=== PATIENT | male | born 1965 | race Caucasian/White ===

== ENCOUNTER 2018-12-29 09:42 | Inpatient (IN) | payer OTHER ==
[~2018-12-29] VITALS: Ht 180.3 cm; Wt 110.6 kg
[2018-12-29 09:45] VITALS: BP 148/73
[2018-12-29 10:04] LABS: ABSOLUTE NEUTROPHILS 5.1 thou/uL (1.4-8.2); BASOPHILS 1.2 % (0.0-2.0); HEMATOCRIT 47.8 % (42.0-52.0); HEMOGLOBIN 15.8 gm/dL (14.0-18.0); LYMPHOCYTES 27.6 % (24.0-44.0); MCV 87.9 fL (80.0-100.0); MONOCYTES 7.3 % (1.0-8.0); PLATELET COUNT 199 thou/uL (150-400); POLYS 59.9 % (36.0-66.0); RBC 5.44 mil/uL (4.50-6.00); RDW 13.9 % (10.5-14.5); WBC 8.5 thou/uL (4.0-11.0)
[2018-12-29 10:14] LABS: CREATININE 0.8 mg/dL (0.7-1.3); POTASSIUM 3.8 mmol/L (3.5-5.1)
[2018-12-29 10:16] LABS: URINE BILIRUBIN NEGATIVE (Negative); URINE BLOOD NEGATIVE (Negative); URINE CLARITY CLEAR; URINE COLOR YELLOW; URINE GLUCOSE-RANDOM* NEGATIVE (Negative); URINE KETONES NEGATIVE (Negative); URINE LEUKOCYTES NEGATIVE (Negative); URINE NITRITE NEGATIVE (Negative); URINE PROTEIN (DIPSTICK) NEGATIVE (Negative); URINE SPECIFIC GRAVITY 1.025 (1.005-1.035); URINE UROBILINOGEN 0.2 E.U./dl (0.2-1.0)
[2018-12-29 10:20] LABS: ALBUMIN 3.9 g/dL (3.4-5.0); DIRECT BILIRUBIN 0.1 mg/dL (<0.1-0.3); TOTAL BILIRUBIN 0.4 mg/dL (<0.1-1.0); TOTAL PROTEIN 6.8 g/dL (6.4-8.2)
[2018-12-29 10:28] LABS: AMP/METHAMP Negative (Negative); BARBITURATES Negative (Negative); BENZODIAZEPINES POSITIVE (Negative); COCAINE POSITIVE (Negative); METHADONE Negative (Negative); OPIATES POSITIVE (Negative); PCP POSITIVE (Negative)
[2018-12-29] MEDS ORDERED: LITHIUM CARBON300 M6 PO (10:50)
[2018-12-29] MEDS ORDERED: XARELTO20 MG PO (10:50)
--- NOTE | 2018-12-29 11:42 | NUR ---
I was asked to assess Maciel to see if he met criteria for psych evaluation. Varghese is paranoid, and speaking loudly almost yelling. He is angry and admitted to being agiatated. Maciel reports being in pain. He denies any suicidal ideations. "I don't want to hurt anybody. I am not going to hurt you." he stated. Pt currently lives at [facility]; he is upset due to the place is unclean. He is asking for xanax, and suboxone. Dr. Bland will admit Maciel to the geripsych unit.
[2018-12-29 12:14] VITALS: BP 111/54
[2018-12-29 12:54] VITALS: BP 104/44
[2018-12-29 14:03] VITALS: BP 105/55
--- NOTE | 2018-12-29 14:05 | NUR ---
ARRIVES TO UNIT VIA CART FROM ER-IS NOTED TO SOMULENT UPON ARRIVAL TO UNIT-INITALLY ABLE TO ANSWEER SOME QUESTIONS BUT RESPONSES ARE SLURRED,SLOW TO RESPOND-DENIES SI/SH/HI-STATES HES HERE FOR "BACK PAIN" AFTER APPROX. 10 MINUTES UPON ARRIVAL TO FLOOR IS TO SEDATED TO ANSWER ADDITIONAL QUESTIONS-DEEP SNORING RESPRATIONS NOTED. VS 105/55-P 65-12 98.0 02 SAT 95 PERCENT. CLOTHING NOTED TO BE SOILED,SMELLS STRONGLY OF BODY ODOR AND URINE- IS NOTED TO HAVE MULTIPLE TATOOS ON LOWERE EXTREMETIES,ARMS AND TORSO-FACE AND ARMS SLIGHLTLY REDDENED. NO OPEN SORES,RASHES OR BRUISING NOTED. PER ER REPORT PT HAS BEEN LEAVING [facility] GOING [address] TO QUICK TRIP AND USING DRUGS-WAS REPORTED TO HAVE TESTED POSITIVE FOR WIQ-QZZ-AGMDQAU,BENZODIAZIPNES AND THC IN ER. PER ER REPORT WAS GIVEN HALDOL AND ATIVAN IN ER FOR AGITATION AND COMBATIVE BEHAVIOR
[2018-12-29 16:22] LABS: FOLIC ACID 11.4 ng/mL (8.6-58.9); TSH 2.101 uIU/mL (0.358-3.740)
[2018-12-29 20:15] VITALS: BP 112/57
--- NOTE | 2018-12-30 05:16 | NUR ---
1909-Report received from day shift nurse and care assumed. Maciel's VS were wnl. He was sleeping and moving side to side at shift start. He was awakened to talk with and he said he "hadn't slept in a couple days" He signed the admission forms, said "the doctors have been lowering his medications". He said he was here for medication adjustment. He ambulated to the bathroom and notably was limping to one side, he said it was his "back, has lumbar injury/pain". His medications at HS due were discussed with him, [place], Methodone and Haldol. He said "no Haldol, it affects my heart". He took the [place] and Methadone only, not the Haldol. He was asked which medicines he wants to take and he said "Klonopin and Oxycontin". He had slept thru dinner meal per report and he said he was real hungry, food given to him. He awakened in the night and walked to the nurses desk and said "I brought cigarettes here" and was explained he has a patch ordered for tomorrow. He returned to sleeping, he urinated in the toilet two or three times in the nite and slept soundly.
[2018-12-30 06:11] LABS: GLYCOHEMOGLOBIN (HGB A1C) 6.6 % (4.8-5.6)
--- NOTE | 2018-12-30 10:56 | NUR ---
Assess due to diet order review. Admit to [facility] with kaylee, polysubstance abuse. BMI obese 34.9, eating 100%. Hx diabetes and BG 117-185 with need for ss insulin. Add carb control to diet order. Low nutrition risk
--- NOTE | 2018-12-30 11:42 | NUR ---
Care assumed of patient at 0700: Patient resting in bed at start of shift. Patient alert and oriented x4. Initially he was pleasant, calm, and cooperative. Patient up for breakfast with good appetite. Patient then isolated to his room. Patient was asked to attend AM groups and became biligerant with nursing staff. Cursing and yelling. Patient did come out to day room but has been resting in chair in the back of the room, isolating self from others. Patient reported that he would not be taking his scheduled Haldol because he is not psychotic and doesn't want to of heart failure. Patient also refused AM insulin. Dr. Carbone notified. Order was obtained to d/c accucheck and insulin due to refusal. Order obtained to start Metformin. Patient reported that he only wants his Klonipin and Oxycotin back. Patient denies SI/HI/AH/VH. No physical aggression observed.
[2018-12-30] MEDS ORDERED: SYNTHROID100 MC1 PO (13:47)
[2018-12-30] MEDS ORDERED: METFORMIN HCL500 MG PO (13:48)
[2018-12-30] MEDS ORDERED: SINGULAIR 10 MG10 M1 PO (13:48)
[2018-12-30] MEDS ORDERED: FLONASE 0.05%50 MCG NASAL (13:49)
[2018-12-30] MEDS ORDERED: ROXICODONE5 M2 PO (13:54)
[2018-12-30] MEDS ORDERED: CLONAZEPAM 1 MG1 M1 PO (13:54)
--- NOTE | 2018-12-30 16:19 | H ---
[facility] [address] [place] [address] HISTORY AND PHYSICAL Name: LIUDMILA SINCLAIR Room #: 524B-B ADM IN M.R.#: [id number] Admission: 12/29/18 Attend Phys: Javi Bland DO Discharge: Date of : 67 Report #: [id number] THIS REPORT FOR: //name// CC: Javi Bland NO PCP DATE OF SERVICE: 12/29/2018 PSYCHIATRIC EVALUATION ATTENDING PHYSICIAN: Javi Bland DO. STACK SUPERVISOR: Hospitalist, Dr. West. Of note, very little information could be obtained due to the patient being manic, psychotic. He is a resident at [facility]. Unfortunately, records were not sent with him to the ER and could not be obtained later in the day. Also, of note, I previously cared for this patient at a previous job at [facility] [facility] in 2018. HISTORY OF PRESENT ILLNESS: The patient says at [facility] recent medication changes. The patient is hypertalkative. Apparently, the patient has resided at nursing facility, unknown period of time. He is unhappy with the care there. He reports lower back pain, which radiates to his left lower quadrant. He was scheduled for surgery 6 months ago, but surgery was not completed. The patient reports drug use. He had numerous positives on his drug screen including cocaine, PCP, marijuana, opiates. He also reports previously being on 2 mg of Ativan, which was reduced. Also he takes lithium. His pharmacy history was obtained from what is available only on medication reconciliation feature of [facility] [employer]. The patient is noted to be on Xarelto 20 mg with dinner, unknown indication; lithium carbonate 300 mg p.o. daily, which we increased to 300 mg twice per day on admission. ALLERGIES: KETOROLAC, OLANZAPINE. KETOROLAC CAUSES ITCHING. SOCIAL HISTORY: He uses drugs. REVIEW OF SYSTEMS: Unable to get comprehensive review of systems. He denied being suicidal in the ER. The patient was telling about if he would be given the medications, he was given in [place], which included Xanax, Suboxone,. The patient's weight is 252 pounds. Looks like they could not get a heart and lung exam on him even in the ER. LABORATORY DATA: Sodium 139, potassium 3.8, chloride 103, bicarbonate 27, BUN 17, creatinine 0.8, estimated GFR 102, glucose 178, calcium 9.0, total bilirubin [facility] [address] [place] [address] HISTORY AND PHYSICAL Name: LIUDMILA SINCLAIR Room #: [facility]- ADM IN .R.#: [id number] Admission: 12/29/18 Attend Phys: Javi Bland, Discharge: Date of : 67 Report #: [id number] 0.4, direct bilirubin 0.1, AST 32, ALT 45, alkaline phosphatase 61, total protein 6.8, albumin 3.9. White count 8.5, H and H 15.8 and 47.8, platelet count 199. Positives on the drug screen were opiates, phencyclidine, benzodiazepines, cocaine and marijuana. UDS was negative. Regarding his medications once on the unit, he is on senna 1 tab p.o. daily, 14 mg nicotine patch, pantoprazole 20 mg p.o. daily, levothyroxine 100 mcg p.o. daily that is from his outside medications. [place] carbonate 300 mg twice per day, his blood level in the ER on toxicology came up negative, less than 0.1, so he has been noncompliant with medication. Other medications, haloperidol 2 mg p.o. b.i.d. was ordered. He is on sliding scale insulin. I have ordered methadone 10 mg 3 times per day, which should make the patient happy. PHYSICAL EXAMINATION: VITAL SIGNS: From this evening, temperature 36.4, pulse 63, respirations 17, BP 112/57, O2 sat 94%. MUSCULOSKELETAL: He uses a cane to walk. Later from the Haldol 5, Ativan 1 he got in the ER, he came sleeping on stretcher. MENTAL STATUS EXAMINATION: This is a well-developed, disheveled, obese male, appearing older than stated age. Attention is impaired. Concentration is impaired. Speech loud before he got the chemical restraints. Mood is congruent, irritable, angry, threatening, and dysphoric. Marked psychomotor agitation. No psychomotor retardation. Made statements of suicidal nature, but these appear to be out of frustration. Denied homicidal intent or plan. Memory unable to be assessed. Insight is impaired. Judgment is impaired. Fund of knowledge is below average. FORMULATION: A 53-year-old male, appearing frankly manic with psychotic features. The patient had to be chemically restrained in the Emergency Room. ASSESSMENT: Bipolar 1 disorder, most recent episode manic, cannot exclude drug-induced cause; substance use disorder including cocaine; chronic pain; hypothyroidism; concern for diabetes mellitus. PLAN: Evaluate, stabilize, obtain collateral. Start lithium 300 mg twice per day, Haldol 2 mg twice per day, start methadone 10 mg p.o. t.i.d. for pain. I have asked the hospitalist to allow me to manage his pain. The patient currently is voluntary. I think the toxins he got in his body from his street drug use have gotten the best of him. He will need to be coherent and able to be managed in a nonhospital setting before he will be allowed to leave voluntarily. Necessary 96-hour hold should be instituted. [facility] [address] [place] [address] HISTORY AND PHYSICAL Name: LIUDMILA SINCLAIR Room #: 524B-B ADM IN M.R.#: [id number] Admission: 12/29/18 Attend Phys: Javi Bland DO Discharge: Date of : 67 Report #: [id number] Time spent on interview, review of records, coordination of care of this patient is at least 45 minutes. strengths: young age weaknesses: illicict drug use,already in halfway, poorcoping skills, poor support <ELECTRONICALLY SIGNED> By: Javi Bland DO 12/30/18 1619 [id number] [id number] Javi Bland DO /nt
--- NOTE | 2018-12-30 16:23 | NUR ---
SW met with pt briefly and was very interested in getting the " right medications" and is worried he may not be able to return to his placement at [facility].
--- NOTE | 2018-12-30 16:56 | EKG ---
[address] [address] ELECTROCARDIOGRAM REPORT Name: TADEOELIEZERILANALIUDMILA Room #: 524B-B ADM IN M.R.#: [id number] Admission: 12/29/18 Attend Phys: Javi lBand DO Discharge: Date of : 67 Report #: [id number] THIS REPORT FOR: //name// [facility] Test Date: 2018-12-30 Test Time: 16:29:05 Pat Name: LIUDMILA SINCLAIR Department: Room: [facility] Gender: M Engineering Recruiter: Yenni VACA : 1965 Requested By: Sharita Lobato Order Number: [id number] MD: Víctor Miller Measurements Intervals [place] Rate: 61 P: 49 [place]: 221 QRS: -60 QRSD: 148 T: 43 QT: 434 QTc: 438 Interpretive Statements Sinus rhythm Prolonged [place] interval RBBB and LAFB No previous ECG available for comparison Electronically Signed On 12-30-2018 16:56:22 CDT by Víctor Miller [email or web address] <ELECTRONICALLY SIGNED> By: Víctor Miller MD 12/30/18 1656 28 Víctor Miller MD /EPI
--- NOTE | 2018-12-30 23:20 | NUR ---
PT ASLEEP ON COUCH IN DAY ROOM UPON ARRIVAL TO SHIFT. PT EASILY AWAKENED, BLUNTED AFFECT GOOD EYE CONTACT, MINIMAL VERBALIZATIONS. PT REQUESTED HS SNACK AND COMPLIANT WITH MEDS. PT ASKED FOR PAIN MED PRIOR TO SLEEP AND PT WAS REMINDED HE HAD JUST TAKEN HIS METHADONE PRIOR TO HIS ICE CREAM. STEADY GAIT.
[2018-12-31 08:58] VITALS: BP 102/44
--- NOTE | 2018-12-31 16:00 | NUR ---
PT ALERT AND ORIENTED TIMES FOUR. VSS, PT DENIES SI/HI. PT STATES HIS ANXIETY IS HIGH. PT REFUSED TO TAKE HADOL THIS MORNING. DR NOTIFED NNO GIVEN AT THIS TIME. PT TOLERATES MEDS AND MEALS. PT UP AMBULATING AROUND THE UNIT WITH STEADY GAIT. SCHEDULED PAIN MEDICATIONS CONTROLLING PAIN WELL.
--- NOTE | 2018-12-31 16:44 | NUR ---
TAMANNA met with pt to complete the intake assesment. This pt was willing to try any NH that would take medicaid in [place] and let him smoke. TAMANNA sent referral to [facility] ( denied because they are full ) and [facility]. This is pending placement.
[2018-12-31 21:08] VITALS: BP 133/76
--- NOTE | 2018-12-31 23:12 | NUR ---
PT AWAKE AND WATCHING TV IN DAY ROOM UPON ARRIVAL TO SHIFT. PT REQUESTED HIS PAIN MEDS DURING VS AND ASSESSMENT. PT REQUESTED SNACK AND PROVIDED. PT HAS STEADY GAIT, GOOD EYE CONTACT, APPROPRIATE AFFECT. PT STATED THE INTERACTIONS OF HIS PEER GROUP WAS THAT SIMILAR TO YOUNG CHILDREN AND WENT TO REST IN BED.
--- NOTE | 2019-01-01 06:34 | NUR ---
PT REPORTED FEELING GOOD AND SLEEPING WELL SINCE HAVING ATIVAN LAST NIGHT. PT STATED HE NEEDS TO BE BACK ON HIS BENZOS. PT ORDERED DOUBLE PORTION BREAKFAST THIS AM. NOTED VARIABLE IN HIS CONVERSATION AND SMILING AFFECT, TALKING WITH ALL STAFF MEMBERS.
[2019-01-01 08:15] VITALS: BP 147/66
--- NOTE | 2019-01-01 16:03 | NUR ---
SW sent more referrals to [facility], [facility] . Pt was denied at [facility]
--- NOTE | 2019-01-01 18:45 | NUR ---
Up ambulating in unit without s/o distress. States he is anxious and has low back pain of 7-8. Requesting Ativan 1mg tid for anxiety and for pain med to be increased. Methadone given for pain. Will discuss ativan at care team meeting. Alert and orientated X4. Denies SI/HI. Breath sounds clear t/o. Color pink with brisk capillary refill. Regular HR auscultated. Active bowel sounds over soft, rounded abdomen. 1200 Atarax given per order for anxiety. Sleeping in chair without s/o distress. 1400 Watching TV and participating in group. Sleepy. No s/o distress. 1800 Currently sleeping in chair in dining room in front of TV. Ate dinner. No s/o distress.
[2019-01-01 19:35] VITALS: BP 118/64
[2019-01-01 23:15] VITALS: BP 118/64
--- NOTE | 2019-01-02 03:34 | NUR ---
PT OUT IN DAY ROOM ASLEEP IN CHAIR IN FRONT OF TV AT G OF SHIFT. ALLOWED STAFF TO ASSESS AND DO VITALS. QUIET AND COOPERATIVE. AFTER SNACKS, PT TOOK HS MEDS W/O PROBLEM. RECEIVED METHADONE FOR C/O PAIN AT LEVEL 7. SLEPT WELL THROUGH THE NIGHT TO THIS POINT.
[2019-01-02 07:05] VITALS: BP 120/69
[2019-01-02 11:11] VITALS: BP 120/69
--- NOTE | 2019-01-02 12:37 | NUR ---
0706 Received report from overnight shift, patient was a little irritable this morning. Patient at breakfast to a ensure and milk from another patient's tray. Patient was told he could not do that, patient is diabetic and take metformin. Patient's nicotine patch was changed today at 09:00, patient at lunch mad a big deal about the portion of food he was getting. Stated he wanted double portions. Dr Bland changed his diet to a regular one, no double portions. Patient will continued to be observed for medication seeking.
[2019-01-02 19:56] VITALS: BP 101/60
--- NOTE | 2019-01-02 23:21 | NUR ---
ASSUMED CARE OF THE PT AT 191 PM. THE PT WAS SITTING IN THE DAYROOM WHEN THIS WAFER FABRICATOR FIRST CAME ON DUTY. ALERT ET ORIENTED X 3. MAKES NEEDS KNOWN. WHEN THIS WAFER FABRICATOR FIRST CAME ON DUTY, THE PT REQUESTED HIS METHADONE, THIS WAFER FABRICATOR TOLD THE PT, HE COULDN'T GET IT UNTIL AFTER 8 PM. DENIES ANXIETY, DEPRESSION, SI/H/A/V HALLUNICATIONS. RACING THOUGHTS OR NIGHTMARES. WALKS WITH A STEADY GAIT. HE DID TAKE HIS HS MEDICATIONS WITHOUT ANY DIFFICULTY. REMAINS ON 12 MINUTE CHECKS FOR HIS SAFETY.
--- NOTE | 2019-01-03 03:48 | NUR ---
THE PT APPEARS TO BE SLEEPING IN BED EARLIER IN THE SHIFT. AT THIS TIME THE PT GOT UP AND WALKED INTO THE DAYROOM, WANTING A SNACK, WHICH WAS HELD THIS AM, THE PT IS A DIABETIC.
--- NOTE | 2019-01-03 05:38 | NUR ---
THE PT SLEPT 5.0 HOURS LAST NIGHT.
[2019-01-03 07:50] VITALS: BP 115/75
--- NOTE | 2019-01-03 19:26 | NUR ---
Alert and orientated X4. States he wants his methadone at 0800. Up ambulating without diff. No s/o distress. Denies SI/HI. States lower back pain is a 7/10. Repeatedly asks for Ativan, offered atarax. Reminded him that Ativan was previously discussed with Dr. Bland and he wasn't ordering that medication for him. Unhappy, but remained polite and cooperative. Breath sounds clear t/o, bilaterally equal. Color pink with brisk capillary refill and palpable peripheral pulses. Regular HR auscultated. Active bowel sounds over soft, rounded abdomen. 1400 Requesting Ativan and Methadone again. Methadone given and reminded him of prior discussions r/t ativan. Becoming more insistent. No s/o distress. 1529 Went to reassess pain and relief from Methadone. Appeared to be sleeping but then startled awake. Again requesting Ativan and wanting to discuss with Dr. Bland. States Methadone helps for several hours but really wants Ativan. Refuses atarax. 1814 Continues to request ativan and to call Dr. Bland. No s/o distress. Attentively watching TV when not asking for meds. Dr. Bland notified. Ordered Seroquel. Pt. states it gave him a BS over 500 in the past. Continues to refuse Atarax. Dr. Bland notified again. Ordered 25 mg Thorazine PO Q 6 hrs prn. Pt. refuses and became angry and used some profanity but remained in control and went back to watching TV. Continues to have no s/o distress.
[2019-01-03 19:51] VITALS: BP 113/72
--- NOTE | 2019-01-03 22:20 | NUR ---
ASSUMED CARE OF THE PT AT 191 PM. ALERT ET ORIENTED X 3. MAKES NEEDS KNOWN. WALKS WITH A STEADY GAIT. TOOK HIS PAIN MEDICATION AND HIS OTHER HS MEDICATIONS WITHOUT ANY DIFFICULTY. DENIES ANXIETY AND DEPRESSION. DENIES SI/HI/A/V HALLUNICATIONS. THE PT WAS SITTING IN THE DAYROOM WHEN THIS DRIVER WHEELCHAIR FIRST CAME ON DUTY. THE PT SPOKE WITH THE PHYSICIAN REGARDING HIS MEDICATIONS, NO NEW ORDERS. REMAINS ON 12 MINUTE CHECKS FOR HIS SAFETY.
--- NOTE | 2019-01-04 01:49 | NUR ---
THE PT APPEARS TO BE RESTING QUIETLY IN BED. REMAINS ON 12 MINUTE CHECKS FOR HIS SAFETY.
--- NOTE | 2019-01-04 05:03 | NUR ---
the pt slept 6.4 hours last night.
[2019-01-04 09:27] VITALS: BP 115/60
--- NOTE | 2019-01-04 16:23 | NUR ---
TAMANNA sent referrals to [facility], was delcined by Marcio Ward. SW followed with pt, and he is being understanding and patient and willing to wait for placement.
[2019-01-04 19:15] VITALS: BP 136/74
--- NOTE | 2019-01-04 19:48 | NUR ---
Up ambulating in unit t/o day. Alert and orientated X4. Cooperative. States lower back pain not too bad but states it is a 6. Requesting methadone right at time due. Conversing with peers and making observations about environment. Breath sounds clear t/o, bilaterally equal. Color pink with brisk capillary refill and palpable peripheral pulses. Reg HR auscultated. Active bowel sounds over soft, rounded abdomen. No requests for anxiety meds today.
--- NOTE | 2019-01-04 19:49 | NUR ---
ASSUMED CARE @ 19:20 ON 01/04/19. AMBULATING AND SITTING IN THE DAY ROOM AND HALLWAYS. COOPERATED WITH ASSESSMENT. C/O NOT ENOUGH FOOD, DENIES SI AND HI. HRRR, LUNGS CTA, ABD NORMOACTIVE BOWEL SOUNDS.
--- NOTE | 2019-01-04 22:04 | NUR ---
Took medications whole with water. Nasal spray, fluconazole provided. ambulating with bag of potato chips at 2200. Will continue to monitor q 12 for patient safety.
[2019-01-04 22:57] VITALS: BP 136/74
[2019-01-05 06:24] VITALS: BP 136/74
[2019-01-05 09:01] VITALS: BP 106/64
--- NOTE | 2019-01-05 10:34 | NUR ---
PATIENT WAS UP AND OUT ON THE UNIT WHEN CARE ASSUMED. PATIENT TOOK ALL MEDICATION WHOLE WITHOUT DIFFICULTY. PATIENT IS EATING MEALS AND DRIKING FLUID WELL. PATIENT IS ON DOUBLE PORTION DIET, ATE 100% OF BREAKFAST. PATIENT PARTICIPATED IN MORNING GROUP THERAPY. PATIENT DENIES SUICIDAL AND HOMICIDAL IDEATION, HE DENIES AUDITORY/VISUAL HALLUCINATION. PATIENT RATED BOTH DERESSION AND ANXIETY 8/10. PATIENT BECAME IRRITABLE WHEN THE RT WOULD NOT LET HIM MONOPOLIZE THE TV REMOTE, HE STARTED CURSING AT STAFF. "SHOVE IT UP YOUR ASS, YOU M.F", HE WAS REDIRECTED BY STAFF. PATIENT'S GOAL TODAY IS "TO GET OUT OF HERE". NO CONCERN VOICED. PATIENT CURRENTLY IN BED RESTING, NO SIGN OF ACUTE DISTRESS NOTED AT THIS TIME, WILL MONITOR FOR SAFETY.
--- NOTE | 2019-01-05 12:41 | NUR ---
Date of Admission: 12/29/18 Date of Activity Therapy Assessment: 01/01/19 Activity Goal: Increase awareness of sober leisure activities Initial Goal: 2 Group activities/day Weekly progress towards goal: On track Group participation level: Minimal Behaviors observed: Patient presents to groups of his choosing. Participation is fairly minimal, as patient either appears drowsy or bored by content d/t lack of similarities in the milieu. Patient is often seen exhibiting restless behaviors such as drumming on the table, making animal noises, or touching objects repeaditively. Plan: No change towards goal
--- NOTE | 2019-01-05 13:53 | NUR ---
1000 - SW followed up with [facility] admissions who said they are still considering him for admissions, but need approval from corporate office. SW contacted Yobany Estrada with [facility] and asked if he would be able to transport pt to a homeless detention; pt had an incident with a nurse is now being asked to leave. Yobany Estrada said he could pick pt up on Fri at 12pm if he is not admitted to a SNF. TAMANNA provided an update to the psych doc on duty who said he agrees with the plan of pt either going to SNF or going with Yobany Estrada. 1300 SW contacted the GP and they have yet to hear from corporate office. They said they would contact SW team when a decision is made. SW provided an update to pt who is also agreeable with plan. SW team will continue to follow pt during his stay.
--- NOTE | 2019-01-05 16:59 | NUR ---
1500- TAMANNA received information that pt can be accepted as a resident at [facility]; however, they need a copy of his SSI letter. TAMANNA asked pt if he has his award letter on him and he said he does not. SW contacted his former residence ([facility]) and asked if they had his belongings and if they have his award letter. The ambulatory nurse repsonded pt's things are at the front office specialist, and then SW was transferred to the facility . This SW left a vm for her. SW team then researced the website to see if the award letter can be requested online. In order to do so, pt needs access to his email. He does not have his phone with him. SW and pt contacted the office to inquire if they can fax the document. The result is they will mail him a letter to the address they have on file within 7-10 business days. 1644 - TAMANNA contacted [facility] to see if there was another document they will accept as pt does not appear to have access to his award at this time. TAMANNA did not receive an answer. TAMANNA also contacted Anthony Mcgill in [place]; there was no answer. TAMANNA team will continue to follow pt during his stay.
[2019-01-05 21:20] VITALS: BP 114/66
[2019-01-05 21:53] VITALS: BP 114/66
--- NOTE | 2019-01-05 22:38 | NUR ---
PATIENT WAS UP IN DINING ROOM UNTIL 10PM AND THEN HEADED OFF TO BED. HE HAS BEEN COOPERATIVE AND PLEASANT TONIGHT. HE DID ASK AROUND 8PM FOR HIS HS MEDS D/T C/O BACK PAIN. PATIENT IS ON METHADONE. HE HAS ALSO BEEN WALKING THE HALLS AT TIMES WITHOUT DISTRESS. PATIENT WAS SOCIAL WITH OTHER PEERS IN VISITING [facility]. HE DID HAVE AN HS SNACK. HE IS TO [facility]. WILL CONTINUE TO MONITOR.
--- NOTE | 2019-01-06 01:21 | NUR ---
PATIENT GIVEN OXYCONTIN 5MG PO AND LIDOCAINE 5% PATCH PLACED ON PATIENT AT 0055. PATIENT WALKED THE WATSON BACK TO HIS ROOM AND HAS BEEN SHOWING SIGNS OF OCD BY REPETIVEVLY FILLING HIS WATER CUP AND SWISHING IT AROUND IN THE CUP AND POURING IT OUT IF CLEANING THE SINK. AFTER WATCHING HIM DO THIS SEVERAL TIMES AND ABOUT 3 MINUTES HE WOULD STILL NOT STOP THE ACTION OR PUT THE CUP DOWN. THIS NURSE REMOVED THE CUP AND HE PICKED UP A WASH CLOTH AND BEGAN WETTING IT AND WASHING OUT THE SINK. I REMOVED EVERYTHING ELSE FROM THE SINK AREA. PATIENT CONTINUES TO CLEAN SINK AFTER 10 MINUTES. HOPING THE PATIENT WILL WEAR HIMSELF OUT. CONTINUOUS CHECKING TO MAKE SURE HE GETS BACK TO BED OK. PATIENT'S PAIN SEEMS TO HAVE DECREASED D/T LOOKS VERY RELAXED AND NOT COMPLAINING OF THE PAIN.
--- NOTE | 2019-01-06 01:31 | NUR ---
PATIENT AWOKE AND GOT UP TO WALK AROUND THE HALLWAYS. HE STATES HE JUST WOKE UP. HE STAYED UP FOR ABOUT 15 MINUTES AND THEN SAID HE WAS GOING TO GO BACK AND TRY AN SLEEP. PATIENT IN BED NOW.
[2019-01-06 08:00] VITALS: BP 128/71
--- NOTE | 2019-01-06 08:00 | NUR ---
Assumed care of patient this am from nightclub manager. Patient breath sounds clear, bowel sounds present, bright affect, calm, content, and cooperative with medications. Patient ambulates without assistance.
[2019-01-06 08:55] VITALS: BP 128/71
[2019-01-06 12:01] VITALS: BP 128/71
[2019-01-06] MEDS ORDERED: XARELTO20 MG PO (12:23)
[2019-01-06] MEDS ORDERED: METHADONE HCL 110 MG PO (12:24)
[2019-01-06] MEDS ORDERED: EFFEXOR XR37.5 MG PO (12:25)
[2019-01-06] MEDS ORDERED: LITHIUM CARBON600 MG PO (12:25)
[2019-01-06] MEDS ORDERED: SENNA-TIME S T1 EACH PO (12:26)
[2019-01-06] MEDS ORDERED: SINGULAIR 10 MG10 M1 PO (12:26)
[2019-01-06] MEDS ORDERED: PROTONIX 20 MG20 MG PO (12:27)
[2019-01-06] MEDS ORDERED: METFORMIN HCL500 MG PO (12:27)
[2019-01-06] MEDS ORDERED: SYNTHROID100 MC1 PO (12:27)
--- NOTE | 2019-01-06 17:15 | NUR ---
TAMANNA contacted [facility] to see if they would be able to accept pt. Admissions said corporate office has denied this referral. A local company hazmat driver for [employer] arrived to transport Maciel to a detention. TAMANNA observed pt gather his things and leave with the local company hazmat driver. During lunch, TAMANNA observed pt still in the hospital. He came to SW and said he decided not to go with local company hazmat driver and thanked SW. No other needs for SW team to address at this time.
--- NOTE | 2019-01-07 22:26 | D ---
[facility] [place] [address] DISCHARGE SUMMARY Name: LIUDMILA SINCLAIR Room #: 524B-B DIS IN M.R.#: [id number] Admission: 12/29/18 Attend Phys: Javi Bland DO Discharge: 01/06/19 Date of : 67 Report #: [id number] THIS REPORT FOR: //name// CC: Javi Bland NO PCP DATE OF SERVICE: 01/06/2019 ATTENDING PHYSICIAN: Javi Bland DO MANAGER RECRUITING AT THE TIME OF DISCHARGE: Иван Riojas MD DISCHARGE DIAGNOSES: Bipolar 1 disorder, most recent episode manic with psychotic features, much improved. Current diagnosis is substance use disorder for stimulants including cocaine, benzodiazepines, likely physiologic dependence on narcotics; however, he does have reasons for chronic pain, requiring opiate management. The patient's medical comorbidities; diabetes mellitus, refusing insulin, just wishes to be on metformin; hypothyroidism, on levothyroxine. Also, he is on Xarelto for DVT, asthma, COPD and nicotine dependence. He was given nicotine patch. DISCHARGE MEDICATIONS: Of note, the patient was strictly given a 15-day supply of methadone 10 mg at 9:00 a.m., 3:00 p.m. and 9:00 p.m., #45 total. The pharmacist called me to verify this at [facility]. Venlafaxine 37.5 mg p.o. as directed #30 for anxiety, lithium carbonate 600 mg p.o. b.i.d. for mood stabilization #60. The patient is recommended to continue to take senna/docusate sodium 1 tablet p.o. daily, Protonix 20 mg p.o. daily at 0700 for GERD. He can continue Flonase nasal spray as needed twice daily during season, also should continue Xarelto 20 mg p.o. daily with dinner. Levothyroxine 100 mcg p.o. daily for hypothyroidism, montelukast 10 mg p.o. at bedtime for COPD, metformin 500 mg p.o. b.i.d. with meals, clonazepam stopped this medicine as well as oxycodone as he is now getting methadone which he should ____ eliminate his illicit drug habit, particularly when he is stressed and his needs are not met. LABORATORY DATA: This admission, of note, his toxicology screening on admission was positive for opiates, phencyclidine, benzodiazepines, cocaine and marijuana. Initial lithium level was less than 0.1. Repeat lithium level on 300 b.i.d. was 0.3, so he was bumped up to 600 b.i.d., should put him in therapeutic range. Serum alcohol was negative on admission. Urinalysis was negative with the exception of some glucosuria I believe. Hematology was within normal limits. Electrolytes; hemoglobin A1c of 6.6, vitamin D level 56.7, folate 11.4, TSH 2.101, albumin was 3.9, no transaminitis. REASON FOR ADMISSION: Back on 12/29/2018, was sent to the ED from [facility]. The patient was manic, hyperverbal, complaining of abdominal and back [address] [address] DISCHARGE SUMMARY Name: LIUDMILA SINCLAIR Room #: 52-B DIS IN M.R.#: [id number] Admission: 12/29/18 Attend Phys: Javi Bland DO Discharge: 01/06/19 Date of : 67 Report #: [id number] pain. He was referred for psychiatric admission. HOSPITAL COURSE: The patient was admitted to [facility]iatric Psych Unit. The patient remained clear within about 48 hours. The patient stated that his living situation was unacceptable for him _[facility]. Attempt was made to find another placement, ____ was contacted. He arranged the patient to go to the [facility]. The patient has been in this situation a number of times. He will need to establish with [facility], likely treatments healing cannabis is recommended. The patient also will need primary care that can be obtained at [facility]. Unfortunately, the patient has a quite addictive personality features as he remained drug seeking for benzodiazepines and frequently make reference and expose the scar on his back. The patient was not suicidal or homicidal at discharge. Denied having hallucinations. VITAL SIGNS: At time of discharge; temperature 36.9, pulse 55, respirations 16, BP 128/71, O2 sat 91%. MENTAL STATUS EXAMINATION: This is a well-developed, disheveled, obese male, appearing stated age. Attention limited. Concentration limited. Speech is normal rate, volume and tone. Thought process is linear and goal directed, focused on getting an early dose of pain medication at the time of discharge. Mood and affect congruent, euthymic, fair range. Insight limited. Judgment fair to limited. Fund of knowledge below average. PROGNOSIS: For this patient is fairly guarded due to repeated episodes of homelessness, needing placement, drug abuse. <ELECTRONICALLY SIGNED> By: Javi Bland DO 01/07/19 [id number] Javi Bland, DO /nt
== END 2019-01-06 12:45 | disposition home or self-care (01) | DRG 885 ==
LOC: ER 09:42 → EROBS 11:55 → SBH 11:55
PROVIDERS: Nurse Practitioner; Student in an Organized Health Care Education/Training Program; ADMIT Psychiatry & Neurology Psychiatry
DX: F31.2 Bipolar disorder, current episode manic severe with psychotic features (principal); F14.10 Cocaine abuse, uncomplicated; E03.9 Hypothyroidism, unspecified; G89.29 Other chronic pain; E11.9 Type 2 diabetes mellitus without complications; F19.10 Other psychoactive substance abuse, uncomplicated; J44.9 Chronic obstructive pulmonary disease, unspecified; F17.210 Nicotine dependence, cigarettes, uncomplicated; Z86.718 Personal history of other venous thrombosis and embolism; Z88.8 Allergy status to other drugs, medicaments and biological substances; Z79.899 Other long term (current) drug therapy; Z79.84 Long term (current) use of oral hypoglycemic drugs
CPT/HCPCS: 10880